=== PATIENT | female | born 1945 | race American Indian/Alaskan Native ===

== ENCOUNTER 2017-03-30 10:30 | Outpatient (CLI) | payer MEDICARE ==
--- NOTE | 2017-03-30 15:38 | Ultrasound Report ---
TRANSABDOMINAL AND TRANSVAGINAL PELVIC ULTRASOUND: 03/30/17 CLINICAL: Postmenopausal pelvic pain. FINDINGS: Transabdominal and transvaginal pelvic ultrasound demonstrated absence of the uterus and a normal vaginal cuff. Ovaries are not identified. No adnexal mass or free fluid. Normal urinary bladder. IMPRESSION: Normal pelvis status post hysterectomy. No explanation for pelvic pain.
== END 2017-03-30 10:31 | disposition home or self-care (01) ==
LOC: SPVWC 10:30
PROVIDERS: ATTEND Family Medicine
DX: R10.2 Pelvic and perineal pain (principal); Z78.0 Asymptomatic menopausal state; Z90.710 Acquired absence of both cervix and uterus
CPT/HCPCS: 76830; 76856